=== PATIENT | male | born 1980 | race Caucasian/White ===

== ENCOUNTER 2016-05-13 05:45 | Emergency (ER) | payer BC ==
--- NOTE | 2016-05-13 06:04 | Emergency Department Record ---
History of Present Illness - General Chief complaint: Flank Pain Stated complaint: right flank pain Time Seen by Provider: 05/13/16 06:03 Source: Patient Mode of Arrival: Ambulatory Limitations: No limitations - History of Present Illness Initial comments: The patient is here due to an episode of R flank pain for the last 2 hours. The onset was sudden. The pain does radiate around the abdomen to the RLQ. He is nauseated but has not vomited. The patient does have a recent hx of kidney stones and probably passed on in Jan of last year. He denies any recent illnesses. MD Complaint: Other Onset/Timin -: Hour(s) Location: Right flank Severity: Moderate Severity scale (1-10): 7 Quality: Aching Consistency: Constant Improves with: None Worsens with: Urination - Related Data Home Medications Medication Instructions Recorded Confirmed Last Taken Fluticasone Propionate [Flonase 15.8 ml NS DAILY 08/17/15 05/13/16 1 Day Ago Allergy Relief] Lisinopril [Zestril] 5 mg PO DAILY 05/13/16 05/13/16 1 Day Ago Allergies Allergy/AdvReac Type Severity Reaction Status Date / Time No Known Allergies Allergy HYPERSENSIT Verified 05/13/16 05:55 IVITY Travel Screening - Travel/Exposure Within Last 30 Days Have you traveled within the last 30 days?: No - Travel/Exposure Within Last Year Have you traveled outside the [place] in the last year?: No - Additonal Travel Details Have you been exposed to anyone with a communicable illness?: No - Travel Symptoms Symptom Screening: None Review of Systems Constitutional: Denies: Chills, Fever Eyes: Denies: Eye discharge ENT: Denies: Congestion Respiratory: Denies: Cough, Dyspnea Past Medical History - SOCIAL HISTORY Smoking Status: Current every day smoker Alcohol Use: Occassional Drug Use: None - RESPIRATORY Hx Respiratory Disorders: No - CARDIOVASCULAR Hx Hypertension: Yes - NEURO Hx Neuro Disorders: No - GI Hx GI Disorders: No - Hx Kidney Stones: Yes - ENDOCRINE Hx Diabetes: No Hx Thyroid Disease: No - MUSCULOSKELETAL Hx Musculoskeletal Disorders: No - PSYCH Hx Psych Problems: No - HEMATOLOGY/ONCOLOGY Hx Hematology/Oncology Disorders: No Family Medical History Any Significant Family History?: Yes Physical Exam - General General Appearance: Alert, Oriented x3, Cooperative, Mild distress - Head Head exam: Atraumatic, Normocephalic, Normal inspection - Eye Eye exam: Normal appearance, PERRL - ENT Throat exam: Normal inspection. negative: Tonsillar erythema, Tonsillar exudate - Neck Neck exam: Normal inspection, Full ROM. negative: Tenderness - Respiratory Respiratory exam: Normal lung sounds bilaterally. negative: Respiratory distress - Cardiovascular Cardiovascular Exam: Regular rate, Normal rhythm, Normal heart sounds - GI/Abdominal GI/Abdominal exam: Soft, Normal bowel sounds. negative: Distended, Tenderness - Extremities Extremities exam: Normal inspection, Full ROM, Normal capillary refill. negative: Tenderness - Neurological Neurological exam: Alert, Normal gait. negative: Abnormal gait Course Vital Signs 05/13/16 05:49 Temperature 97.4 F L Pulse Rate 82 Respiratory 18 Rate Blood Pressure 147/99 Pulse Ox 99 - Reevaluation(s) Reevaluation #1: The patient is doing much better at this time. His pain is much improved. 05/13/16 06:25 Reevaluation #2: The patient is doing much better. I did discuss the CT results with him and the need for F/U. 05/13/16 06:47 Reevaluation #3: The patient is still waiting to urinate. Due to shift change his care will be turned over to DR. Araiza. 05/13/16 06:48 Medical Decision Making - Data Complexity MDM Data: Labs Ordered and/or Reviewed, X-Ray Ordered and/or Reviewed - Lab Data Result diagrams: 05/13/16 06:05 05/13/16 06:05 - Radiology Data Radiology results: Report reviewed (CT: 7mm calculus in the distal R ureter with mod hydronephrosis.) Disposition Forms: Patient Portal Access
[2016-05-13] MEDS ORDERED: ONDANSETRON HCL IV 4 MG/2 ML VIAL IVP ONE (06:06)
[2016-05-13] MEDS ORDERED: 0.9 % SODIUM CHLORIDE 1,000 ML BAG IV ONE (06:06)
[2016-05-13] MEDS ORDERED: HYDROMORPHONE HCL 1 MG/ML CPJ IVP ONE (06:06)
[2016-05-13 06:16] LABS: BASO % 0.5 % (0-6); EOS % 1.9 % (0-6); HEMATOCRIT 45.8 % (42.0-52.0); HEMOGLOBIN 15.6 gm/dl (14.0-18.0); LYMPH % 36.9 % (16-45); MEAN CELL VOLUME 88.1 fl (81-97); MEAN CORPUSCULAR HGB CONC 34.1 g/dl (32-36); MEAN PLATELET VOLUME 11.5 fl (7.4-10.4); MONO % 12.7 % (0-9); PLATELET COUNT 284 K/uL (130-400); RED CELL DISTRIBUTION WIDTH 13.3 % (11.5-14.5); WHITE BLOOD COUNT W/O DIFF 9.8 K/uL (4.2-12.2)
[2016-05-13 06:27] LABS: ANION GAP 14.6 (7-16); BLOOD UREA NITROGEN 13 mg/dL (9-20); CARBON DIOXIDE 25.4 mmol/L (22-30); CREATININE 0.9 mg/dL (0.66-1.25); EST GLOMERULAR FILTRATION RATE > 60 ml/min; GLUCOSE,RANDOM 120 mg/dL (70-110)
[2016-05-13] MEDS ORDERED: KETOROLAC 30 MG/ML VIAL IVP ONE (06:34)
[2016-05-13 07:32] LABS: URINE APPEARANCE CLEAR; URINE BILIRUBIN NEGATIVE (NEGATIVE); URINE BLOOD LARGE (NEGATIVE); URINE COLOR YELLOW; URINE GLUCOSE (UA) NEGATIVE (NEGATIVE); URINE KETONE NEGATIVE (NEGATIVE); URINE LEUKOCYTE ESTERASE NEGATIVE (NEGATIVE); URINE NITRITE NEGATIVE (NEGATIVE); URINE PROTEIN NEGATIVE (NEGATIVE); URINE UROBILINOGEN 0.2 E.U./dL (0.20 - 1.00)
[2016-05-13 07:38] LABS: URINE BACTERIA NONE SEEN; URINE EPITHELIAL CELLS NONE SEEN (FEW); URINE RBC 21 - 35 (NONE SEEN); URINE WBC NONE SEEN (0-2/hpf)
--- NOTE | 2016-05-13 08:44 | Emergency Department Record ---
History of Present Illness - General Chief complaint: Flank Pain Stated complaint: right flank pain Time Seen by Provider: 05/13/16 06:03 Source: Patient Mode of Arrival: Ambulatory Limitations: No limitations - History of Present Illness Onset/Timin -: Hour(s) Location: Right flank Severity: Moderate Severity scale (1-10): 7 Quality: Aching Consistency: Constant Improves with: None Worsens with: Urination - Related Data Home Medications Medication Instructions Recorded Confirmed Last Taken Fluticasone Propionate [Flonase 15.8 ml NS DAILY 08/17/15 05/13/16 1 Day Ago Allergy Relief] Lisinopril [Zestril] 5 mg PO DAILY 05/13/16 05/13/16 1 Day Ago Previous Rx's Medication Instructions Recorded Hydrocodone/Acetaminophen [[place] 1 tab PO Q6H PRN #14 tab 05/13/16 5mg/325mg] Allergies Allergy/AdvReac Type Severity Reaction Status Date / Time No Known Allergies Allergy HYPERSENSIT Verified 05/13/16 05:55 IVITY Travel Screening - Travel/Exposure Within Last 30 Days Have you traveled within the last 30 days?: No - Travel/Exposure Within Last Year Have you traveled outside the [place] in the last year?: No - Additonal Travel Details Have you been exposed to anyone with a communicable illness?: No - Travel Symptoms Symptom Screening: None Review of Systems Constitutional: Denies: Chills, Fever Eyes: Denies: Eye discharge ENT: Denies: Congestion Respiratory: Denies: Cough, Dyspnea Past Medical History - SOCIAL HISTORY Smoking Status: Current every day smoker Alcohol Use: Occassional Drug Use: None - RESPIRATORY Hx Respiratory Disorders: No - CARDIOVASCULAR Hx Hypertension: Yes - NEURO Hx Neuro Disorders: No - GI Hx GI Disorders: No - Hx Kidney Stones: Yes - ENDOCRINE Hx Diabetes: No Hx Thyroid Disease: No - MUSCULOSKELETAL Hx Musculoskeletal Disorders: No - PSYCH Hx Psych Problems: No - HEMATOLOGY/ONCOLOGY Hx Hematology/Oncology Disorders: No Family Medical History Any Significant Family History?: Yes Physical Exam - General Limitations: No limitations Course Vital Signs 05/13/16 05/13/16 05:49 07:57 Temperature 97.4 F L 98.1 F Pulse Rate 82 Pulse Rate [ 80 Pulse Ox Probe] Respiratory 18 12 Rate Blood Pressure 147/99 Blood Pressure 133/78 [Right Arm] Pulse Ox 99 95 - Reevaluation(s) Reevaluation #1: 05/13/16 08:39 pt feels much better. dr graham rosa Reevaluation #2: 05/13/16 09:13 d/w dr stevenson Medical Decision Making - Lab Data Result diagrams: 05/13/16 06:05 05/13/16 06:05 Lab Results 05/13/16 05/13/16 05/13/16 Range/Units 06:05 06:05 07:20 WBC 9.8 (4.2-12.2) K/uL RBC 5.20 (4.40-5.70) M/uL Hgb 15.6 (14.0-18.0) gm/dl Hct 45.8 (42.0-52.0) % MCV 88.1 (81-97) fl MCH 30.0 (27-33) pg MCHC 34.1 (32-36) g/dl RDW 13.3 (11.5-14.5) % Plt Count 284 (130-400) K/uL MPV 11.5 H (7.4-10.4) fl Gran % 48.0 (47-80) % Lymphocytes % 36.9 (16-45) % Monocytes % 12.7 H (0-9) % Eosinophils % 1.9 (0-6) % Basophils % 0.5 (0-6) % Sodium 138 (136-145) mmol/L Potassium 3.9 (3.5-5.1) mmol/L Chloride 98 (98-107) mmol/L Carbon Dioxide 25.4 (22-30) mmol/L Anion Gap 14.6 (7-16) BUN 13 (9-20) mg/dL Creatinine 0.9 (0.66-1.25) mg/dL Estimated GFR > 60 ml/min Random Glucose 120 H (70-110) mg/dL Calcium 9.7 (8.5-10.1) mg/dL Urine Color Yellow Urine Appearance Clear Urine pH 7.0 (5.0-8.0) Ur Specific [place] 1.010 (1.002-1.030) Urine Protein Negative (NEGATIVE) Urine Glucose (UA) Negative (NEGATIVE) Urine Ketones Negative (NEGATIVE) Urine Blood Large H (NEGATIVE) Urine Nitrite Negative (NEGATIVE) Urine Bilirubin Negative (NEGATIVE) Urine Urobilinogen 0.2 (0.20 - 1.00) E.U./dL Ur Leukocyte Esterase Negative (NEGATIVE) Urine RBC 21 - 35 (NONE SEEN) Urine WBC None seen (0-2/hpf) Ur Epithelial Cells None seen (FEW) Urine Bacteria None seen Disposition Disposition: Discharge Clinical Impression: Renal lithiasis Hydronephrosis Qualifiers: Hydronephrosis type: with ureteral calculous obstruction Qualified Code(s): N13.2 - Hydronephrosis with renal and ureteral calculous obstruction Disposition: Home, Self-Care Condition: (1) Good Instructions: Kidney Stones (ED), How to Strain Your Urine (ED) Additional Instructions: follow up with urologist on saturday in clinic. return sooner if worse. Prescriptions: Hydrocodone/Acetaminophen [[place] 5mg/325mg] 1 tab PO Q6H PRN #14 tab PRN Reason: Pain - General Referrals: IRMA MANN M.D. [MEDICAL DOCTOR] - [facility] [Provider Group] Forms: Patient Portal Access
--- NOTE | 2016-05-16 08:43 | CT SCAN REPORT ---
EXAM: CT OF THE ABDOMEN AND PELVIS WITHOUT CONTRAST HISTORY: RIGHT FLANK PAIN. TECHNIQUE: Thin collimation helical CT examination of the abdomen and pelvis was performed without oral or intravenous contrast administration for the express purpose of evaluating the renal collecting systems for obstructing calculi. Coronal and sagittal reformatted images were generated and reviewed. Comparison: None. FINDINGS: Lack of oral and IV contrast utilization limits evaluation of the bowel and solid viscera respectively. The lung bases are clear and there is no pleural or pericardial effusion. The heart is not enlarged. The liver, spleen, pancreas, and adrenal glands are normal in appearance. The gallbladder is unremarkable. No gross biliary ductal dilatation is seen. The kidneys are normal in position and smoothly marginated. The right kidney is slightly larger than the left and there is minor right perinephric fat stranding. Multiple small nonobstructing calculi are scattered in each kidney. There are approximately nine of these calcifications on the right and at least nine on the left. There are two round hypodense areas within the left kidney. That at the posterior mid level measures 14 mm and that in the lateral lower pole measures 11 mm. These areas have fluid density and are nonspecific, but are likely cysts. There is moderate right hydroureteronephrosis associated with mild periureteral fat stranding down to the junction of the middle and distal thirds of the right ureter where there is an obstructing calculus measuring 4.7 x 4.3 mm. No other ureteral calculus is seen. There are a few small calcifications scattered in the inferior pelvis, likely vascular in origin. No intrinsic urinary bladder abnormality is demonstrated. No pelvic mass, lymphadenopathy, nor free pelvic fluid is seen. No gross bowel dilatation or bowel wall thickening. The appendix is visualized and normal in appearance. No lytic or blastic bone lesion. IMPRESSION: 1. BILATERAL NEPHROLITHIASIS. 4.7 X 4.3 MM CALCULUS IN THE DISTAL RIGHT URETER CAUSING MODERATE HYDROURETERONEPHROSIS AND MILD PERINEPHRIC/PERIURETERAL FAT STRANDING. 2. THERE ARE A COUPLE SMALL AREAS OF HYPODENSITY WITHIN THE LEFT KIDNEY. THESE ARE NONSPECIFIC, BUT LIKELY CYSTS. JOB NUMBER: [id number] [facility]
== END 2016-05-13 09:34 | disposition home or self-care (01) ==
LOC: ER 05:45
DX: N13.2 Hydronephrosis with renal and ureteral calculous obstruction (principal); R11.0 Nausea; I10 Essential (primary) hypertension; F17.210 Nicotine dependence, cigarettes, uncomplicated; Z87.442 Personal history of urinary calculi
CPT/HCPCS: 99284 ×2; 96374; 96375; 85025; 80048; 81001; 74176; J1885; J2405; J1170; J7030

== ENCOUNTER 2017-03-16 01:29 | Emergency (ER) | payer BC, OTHER ==
[2017-03-16] MEDS ORDERED: HYDROCODONE/APAP 5/325MG TABLET PO ONE (01:43)
[2017-03-16] MEDS ORDERED: DEXAMETHASONE SOD PHOSPHATE 10MG/ML VIAL PO ONE (01:43)
[2017-03-16] MEDS ORDERED: CLINDAMYCIN 150 MG CAP PO ONE (01:43)
--- NOTE | 2017-03-16 01:45 | Emergency Department Record ---
History of Present Illness - General Chief complaint: Dental Stated complaint: DENTAL PAIN Time Seen by Provider: 03/16/17 01:43 Source: Patient Mode of Arrival: Ambulatory Limitations: No limitations - History of Present Illness Initial comments: 36 yo male presents to ED for evaluation of worsening dental pain and swelling to the left upper maxillary region. Patient reports that he was recently prescribed Amoxicillin by a Tele-Doc yesterday, however he reports that his symptoms are worsening. Patient denies drainage from the dental site, denies fevers, chills, or sore throat symptoms. MD complaint: Tooth pain Onset/Timin -: Days(s) 1 - Dental pain Severity scale (1-10): 8 Quality: Aching Consistency: Constant Improves with: None Worsens with: None Context- Dental: History of dental caries Associated Symptoms: Toothache - Related Data Home Medications Medication Instructions Recorded Confirmed Last Taken Amoxicillin 500 mg PO BID 03/16/17 03/16/17 Unknown Ibuprofen [Motrin 600Mg] 600 mg PO Q6H 03/16/17 03/16/17 03/15/17 21:30 Allergies Allergy/AdvReac Type Severity Reaction Status Date / Time No Known Allergies Allergy HYPERSENSIT Verified 05/13/16 05:55 IVITY Travel Screening - Travel/Exposure Within Last 30 Days Have you traveled within the last 30 days?: No Review of Systems Constitutional: Denies: Chills, Fever, Malaise, Night sweats Eyes: Denies: Eye discharge ENT: Reports: Dental pain. Denies: Congestion Respiratory: Denies: Cough, Dyspnea Cardiovascular: Denies: Chest pain, Dyspnea on exertion Endocrine: Denies: Fatigue, Heat or cold intolerance Gastrointestinal: Denies: Abdominal pain, Nausea, Vomiting Genitourinary: Denies: Incontinence, Retention Musculoskeletal: Denies: Arthralgia, Back pain, Gout, Joint swelling Skin: Denies: Bruising, Change in color Neurological: Denies: Abnormal gait, Confusion, Headache, Seizure Psychiatric: Denies: Anxiety Hematological/Lymphatic: Denies: Anemia, Blood Clots Past Medical History - SOCIAL HISTORY Smoking Status: Current every day smoker Alcohol Use: None Drug Use: None - RESPIRATORY Hx Respiratory Disorders: No - CARDIOVASCULAR Hx Hypertension: Yes - NEURO Hx Neuro Disorders: No - GI Hx GI Disorders: No - Hx Genitourinary Disorders: Yes Hx Kidney Stones: Yes (hx) - ENDOCRINE Hx Diabetes: No Hx Thyroid Disease: No - MUSCULOSKELETAL Hx Musculoskeletal Disorders: No - PSYCH Hx Psych Problems: No - HEMATOLOGY/ONCOLOGY Hx Hematology/Oncology Disorders: No Family Medical History Any Significant Family History?: No Physical Exam - General General Appearance: Alert, Oriented x3, Cooperative, Moderate distress Limitations: No limitations - Head Head exam: Atraumatic Head exam detail: Other (STS to the left maxillary region, no induration or fluctuance to suggest cutaneous abscess). negative: Abrasion, Contusion, Winkler 's sign, General tenderness, Hematoma, Laceration - Eye Eye exam: Normal appearance. negative: Conjunctival injection, Periorbital swelling, Periorbital tenderness, Scleral icterus - ENT Ear exam: negative: Auricular hematoma, Auricular trauma Nasal Exam: negative: Active bleeding, Discharge, Dried blood, Foreign body Mouth exam: negative: Drooling, Laceration, Muffled voice, Tongue elevation Teeth exam: Dental tenderness # Throat exam: negative: Tonsillar erythema, Tonsillomegaly, R peritonsillar mass , L peritonsillar mass Image of Mouth/Teeth: 1 - Dental pain, no gingival abscess is present on examination. - Neck Neck exam: Normal inspection. negative: Meningismus, Tenderness - Respiratory Respiratory exam: Normal lung sounds bilaterally. negative: Rales, Respiratory distress, Rhonchi, Stridor - Cardiovascular Cardiovascular Exam: Regular rate, Normal rhythm, Normal heart sounds - GI/Abdominal GI/Abdominal exam: Soft. negative: Rebound, Rigid, Tenderness - Rectal Rectal exam: Deferred - exam: Deferred - Extremities Extremities exam: Normal inspection. negative: Pedal edema, Tenderness - Back Back exam: Denies: CVA tenderness (R), CVA tenderness (L) - Neurological Neurological exam: Alert, Normal gait, Oriented X3 - Psychiatric Psychiatric exam: Normal affect, Normal mood - Skin Skin exam: Normal color. negative: Abrasion Type of lesion: negative: abrasion Course Vital Signs 03/16/17 01:34 Temperature 97.3 F L Pulse Rate [ 101 H Pulse Ox Probe] Respiratory 16 Rate Blood Pressure 145/101 [Left Arm] Pulse Ox 98 - Reevaluation(s) Reevaluation #1: 03/16/17 01:49 Patient was seen and examined, facial swelling is likely the results of reactive inflammation resulting from dental abscess. There is no clinical evidence for cutaneous abscess on examination. Will treat with Clindamycin, [place], and Decadron x 1 for his symptoms with instructions to return to ED if symptoms fail to improve in 12-24 hours. Patient verbalizes his instructions and appears stable for discharge at this time. Disposition Disposition: Discharge Clinical Impression: Dental abscess Disposition: Home, Self-Care Condition: (2) Stable Instructions: Dental Abscess (ED) Additional Instructions: Return to ED in 12-24 hours if your symptoms fail to improve. Clindamycin as directed. Follow-up with your Dentist Saturday as directed. Forms: Patient Portal Access Time of Disposition: 01:45 Quality - Quality Measures Quality Measures: N/A - Blood Pressure Screening Does Patient Have Any of the Following: No Blood Pressure Classification: Hypertensive Reading Systolic Measurement: 145 Diastolic Measurement: 101 Screening for High Blood Pressure: < First Hypertensive BP, F/U Documented > [ [id number]] First Hypertensive Follow-up Interventions: Referral to alternative/primary care provider.
== END 2017-03-16 01:57 | disposition home or self-care (01) ==
LOC: ER 01:29
DX: K04.7 Periapical abscess without sinus (principal)
CPT/HCPCS: 99282